=== PATIENT | male | born 1995 | race Hispanic/Latino ===

== ENCOUNTER 2023-09-15 14:02 | Emergency (ER) | payer SELFPAY | END 2023-09-15 16:15 | disposition home or self-care (01) | LOC: CSHERS 14:02 | DX: L23.7 Allergic contact dermatitis due to plants, except food (principal); F17.210 Nicotine dependence, cigarettes, uncomplicated | CPT/HCPCS: 99282 ==

== ENCOUNTER 2024-12-03 15:43 | Emergency (ER) | payer SELFPAY | END 2024-12-03 18:00 | disposition home or self-care (01) | LOC: CSHERS 15:43 | DX: L29.9 Pruritus, unspecified (principal); R21 Rash and other nonspecific skin eruption; F17.210 Nicotine dependence, cigarettes, uncomplicated | CPT/HCPCS: 99282 ==